=== PATIENT | female | born 1965 | race Caucasian/White ===

== ENCOUNTER → 2016-10-24 | Outpatient (CLI) | payer BC ==
[~2016-10-24] MED LIST: ALLEGRA ALLERGY60 MG PO; ALLERGY RELIEF10 MG PO; AUGMENTIN875 MG PO; FLEXERIL10 M1 PO; FLONASE16 GM; HYDROCODON-ACE1 EACH PO; IBUPROFEN800 MG PO; LEVOTHROID88 MCG PO; LORTAB 5-325 M1 EACH PO; LORTAB 5/500 TA1 TA1; MOTRIN600 MG PO; MULTI VITAMIN1 EACH; PHENERGAN25 M1 PO; PRAVACHOL; PRAVACHOL20 MG PO; STAHIST AD TAB1 EACH PO; SYNTHROID PO; TRICOR PO; VICODIN 5/1 TAB 5/50 PO; VOLTAREN50 MG PO
--- NOTE | ~2016-10-24 | MY11 ---
[facility] A Service [facility] RADIOLOGY TEXT RESULTS PATIENT: JESSIE BLOOM LOCATION: [facility] : 63 UNIT #: [id number] AGE: [address]: Eduardo Givens MD SEX: F ORDER DR: [id number] [place] [id number] O MR#: [id number] Acc #: [id number] NAME: JESSIE BLOOM : 1965 SEX: F STUDY DATE/TIME: 10/24/2016 9:47 UNIT: [facility] ROOM: STUDY DESCRIPTION: MY Mammogram Screening Dig Jean Attending Physician: Eduardo Givens M.D. Referring Physician: Eduardo Givens M.D. Ordering Physician: Eduardo Givens M.D. Primary Care Physician: Eduardo Givens M.D. MEDICAL IMAGING REPORT This report is preliminary unless electronic signature is present. EXAM Digital screening mammogram with CAD INDICATIONS Routine screening. PROCEDURE Bilateral CC and MLO views and a right XCCL view obtained on a digital mammography unit. FDA-approved CAD device was utilized. COMPARISON 11/24/2010 FINDINGS Scattered fibroglandular density. No dominant mass or suspicious calcification. IMPRESSION Negative screening mammogram; screen interval of 1 year suggested. Patients over the age of 40 are entered into a reminder system with target due date for the next mammogram. A result letter will also be sent to the patient. BIRADS: 1 Negative Dictated by... Dariusz Ram M.D. THIS IS AN ELECTRONICALLY VERIFIED REPORT Dariusz Ram M.D. at 10/25/2016 7:12 AM [facility] A Service [facility] RADIOLOGY TEXT RESULTS PATIENT: JESSIE BLOOM LOCATION: [facility] : 63 UNIT #: [id number] AGE: [address]: Eduardo Givens MD SEX: F ORDER DR: Delfino TD: 10/24/2016 18:58 JOB #: [id number] MEDICAL IMAGING REPORT Page 1 of 1
== END | disposition home or self-care (01) ==
LOC: SMAM 10-11 08:30
DX: Z12.31 Encounter for screening mammogram for malignant neoplasm of breast (principal)
CPT/HCPCS: G0202